=== PATIENT | female | born 1965 | race Caucasian/White ===

== ENCOUNTER 2017-08-07 23:44 | Emergency (ER) | payer BC ==
[2017-08-08] MEDS: IBUPROFEN 800 MG TAB PO (05:04)
[2017-08-08] MEDS: HYDROCODONE/APAP (10/325) TAB PO (05:04)
== END 2017-08-08 06:00 | disposition home or self-care (01) ==
LOC: E/R 23:44
DX: J20.9 Acute bronchitis, unspecified (principal); R07.89 Other chest pain; F17.210 Nicotine dependence, cigarettes, uncomplicated
CPT/HCPCS: 71045; 93005; 99284-25